=== PATIENT | male | born 1930 | race Caucasian/White ===

== ENCOUNTER 2019-02-18 13:10 | Inpatient (IN) | payer MEDICARE ==
[~2019-02-18] VITALS: Ht 172.7 cm; Wt 76.7 kg
[2019-02-18] MEDS ORDERED: Z GUARD REMEDY PASTE 57 GM TUBE TOP PRN (17:00)
[2019-02-18 17:20] VITALS: BP 105/69
[2019-02-18] MEDS ORDERED: [UNRECOGNIZED DRUG - CODE] NEB (17:38)
[2019-02-18] MEDS ORDERED: ONDA4TAB10 PO (17:38)
[2019-02-18] MEDS ORDERED: PRED20TA PO (17:38)
[2019-02-18] MEDS ORDERED: DABI150C PO (17:38)
[2019-02-18] MEDS ORDERED: DILT240C88 PO (17:38)
[2019-02-18] MEDS ORDERED: VENL75CA56 PO (17:38)
[2019-02-18] MEDS ORDERED: BUPR300T54 PO (17:38)
[2019-02-18] MEDS ORDERED: IPRA0.2S6 NEB (17:38)
[2019-02-18] MEDS ORDERED: GUAI5SYR4 GT (17:38)
[2019-02-18] MEDS ORDERED: ACET-2154 PO (17:38)
[2019-02-18] MEDS ORDERED: ALBU1.25 IH (17:38)
[2019-02-18] MEDS ORDERED: PRED2.5T PO (17:45)
[2019-02-18 20:42] VITALS: BP 121/65
[2019-02-18] MEDS ORDERED: GUAIFENESIN/CODEINE 5 ML LIQUID UDC GT PRN (22:15)
[2019-02-18] MEDS ORDERED: ACETYLCYSTEINE 10% 4ML VIAL MC SCH (23:30)
[2019-02-19] MEDS: IPRATROPIUM BROMIDE 0.5 MG/2.5 ML NEBU NEB SCH ×6 (00:35→22:30)
[2019-02-19] MEDS: ALBUTEROL SULFATE 1.25 MG/3 ML NEBU IH SCH ×6 (00:35→22:30)
[2019-02-19] MEDS ORDERED: BENZONATATE 100 MG CAPSULE PO PRN ×2 (01:15→07:30)
[2019-02-19] MEDS ORDERED: BENZONATATE 100 MG CAPSULE ONE (01:43)
[2019-02-19 06:01] VITALS: BP 114/64
[2019-02-19 07:52] VITALS: BP 107/55
[2019-02-19] MEDS ORDERED: predniSONE 10 MG TABLET PO SCH (09:00)
[2019-02-19] MEDS ORDERED: predniSONE 20 MG TABLET PO SCH (09:00)
[2019-02-19] MEDS: buPROPion XL 150 MG TAB.SR.24H PO SCH (09:00)
[2019-02-19] MEDS ORDERED: Medication Not On Formulary EA (Bupropion Hcl (Bupropion Xl) 300 MG) PO SCH (09:00)
[2019-02-19] MEDS: VENLAFAXINE XR 75 MG CAP.SR.24H PO SCH (09:22)
[2019-02-19] MEDS: predniSONE 20 MG TABLET PO SCH (09:22)
[2019-02-19] MEDS: DILTIAZEM HCL CD 240 MG CAP.SR.24H PO SCH (09:22)
[2019-02-19] MEDS: ACETYLCYSTEINE 10% 4ML VIAL NEB SCH ×2 (15:30→22:30)
[2019-02-19 16:23] VITALS: BP 119/64
[2019-02-19] MEDS: DABIGATRAN ETEXILATE MESYLATE 150 MG CAPSULE PO SCH (17:18)
[2019-02-19] MEDS: MUPIROCIN 2% OINT 22 GM TUBE NS SCH (20:26)
[2019-02-19 20:32] VITALS: BP 105/60
[2019-02-19] MEDS: GUAIFENESIN/CODEINE 5 ML LIQUID UDC PO PRN (22:32)
[2019-02-20] MEDS: ALBUTEROL SULFATE 1.25 MG/3 ML NEBU IH SCH ×6 (02:30→22:33)
[2019-02-20] MEDS: IPRATROPIUM BROMIDE 0.5 MG/2.5 ML NEBU NEB SCH ×6 (02:30→22:33)
[2019-02-20 06:41] VITALS: BP 112/67
[2019-02-20 07:02] LABS: BASOPHILS % (AUTO) 0.2 % (0.0-2.0); EOSINOPHILS % (AUTO) 0.1 % (0.0-7.0); HEMOGLOBIN 8.8 g/dL (12.5-16.3); LYMPHOCYTES # (AUTO) 0.4 K/uL (20.0-40.0); LYMPHOCYTES % (AUTO) 2.6 % (20.5-51.5); MEAN CORPUSCULAR HGB CONC 33 g/dL (32.5-36.3); MEAN CORPUSCULAR VOLUME 85.9 fL (73.0-96.2); MONOCYTES # (AUTO) 1.2 K/uL (2.0-10.0); MONOCYTES % (AUTO) 8.8 % (0.0-11.0); NEUTROPHILS # (AUTO) 12.2 K/uL (1.8-8.9); NEUTROPHILS % (AUTO) 88.3 % (38.5-71.5); PLATELET COUNT (AUTO) 327 K/uL (152-348); RED BLOOD CELL COUNT(AUTO) 3.14 MIL/uL (4.06-5.63); WHITE BLOOD COUNT (AUTO) 13.9 K/uL (3.6-10.2)
[2019-02-20] MEDS: ACETYLCYSTEINE 10% 4ML VIAL NEB SCH ×3 (07:22→22:33)
[2019-02-20 07:43] LABS: IRON, SERUM 17 ug/dL (50-175)
[2019-02-20 07:44] LABS: THYROID STIMULATING HORMONE 1.673 mIU/mL (0.358-3.740)
[2019-02-20 07:46] LABS: ALANINE AMINOTRANSFERASE 40 U/L (16-63); ALKALINE PHOSPHATASE 106 U/L (50-136); ASPARTATE AMINOTRANSFERASE 27 U/L (15-37); BILIRUBIN,TOTAL 0.5 mg/dL (0.2-1.0); CARBON DIOXIDE 29 mmol/L (21-32); CHLORIDE 100 mmol/L (98-107); CHOLESTEROL 129 mg/dL (<200); CREATININE 1.1 mg/dL (0.6-1.3); GLUCOSE 86 mg/dL (74-106); HDL CHOLESTEROL 61 mg/dL (40-60); MAGNESIUM 2.4 mg/dL (1.8-2.4); PHOSPHOROUS 3.2 mg/dL (2.5-4.9); POTASSIUM 3.9 mmol/L (3.5-5.1); TOTAL PROTEIN, SERUM 6.1 g/dL (6.4-8.2); TRIGLYCERIDES 69 MG/DL (30-150); UREA NITROGEN, BLOOD 33 mg/dL (7-18)
[2019-02-20 07:55] VITALS: BP 116/45
[2019-02-20] MEDS ORDERED: LEVOFLOXACIN 500 MG TABLET PO SCH (08:00)
[2019-02-20] MEDS: buPROPion XL 150 MG TAB.SR.24H PO SCH (09:44)
[2019-02-20] MEDS: VENLAFAXINE XR 75 MG CAP.SR.24H PO SCH (09:44)
[2019-02-20] MEDS: predniSONE 20 MG TABLET PO SCH (09:44)
[2019-02-20] MEDS: DABIGATRAN ETEXILATE MESYLATE 150 MG CAPSULE PO SCH ×2 (09:45→18:18)
[2019-02-20] MEDS: DILTIAZEM HCL CD 240 MG CAP.SR.24H PO SCH (09:46)
[2019-02-20] MEDS: MUPIROCIN 2% OINT 22 GM TUBE NS SCH ×2 (09:54→21:18)
[2019-02-20] MEDS: GUAIFENESIN/CODEINE 5 ML LIQUID UDC PO PRN ×2 (10:20→21:42)
[2019-02-20 15:25] VITALS: BP 99/44
[2019-02-20] MEDS ORDERED: FUROSEMIDE 20 MG TABLET PO SCH (18:30)
[2019-02-20 21:17] VITALS: BP 112/56
[2019-02-20] MEDS: CULTURELLE CAPSULE PO SCH (21:18)
[2019-02-20] MEDS: FUROSEMIDE 20 MG/2 ML VIAL IV SCH (21:46)
[2019-02-20] MEDS: PIPERACILLIN/TAZOBACTAM/D5W 3.375 G in PREMIXED 1 EACH IV SCH (23:09)
[2019-02-21] MEDS: ALBUTEROL SULFATE 1.25 MG/3 ML NEBU IH SCH ×5 (02:35→20:09)
[2019-02-21] MEDS: IPRATROPIUM BROMIDE 0.5 MG/2.5 ML NEBU NEB SCH ×5 (02:35→20:09)
[2019-02-21] MEDS: ACETAMINOPHEN 325 MG TABLET PO PRN (04:16)
[2019-02-21 05:53] VITALS: BP 118/61
[2019-02-21] MEDS: PIPERACILLIN/TAZOBACTAM/D5W 3.375 G in PREMIXED 1 EACH IV SCH ×3 (06:18→21:07)
[2019-02-21 07:23] LABS: HEMATOCRIT 26.4 % (36.7-47.1); HEMOGLOBIN 8.6 g/dL (12.5-16.3); LYMPHOCYTES # (AUTO) 0.3 K/uL (20.0-40.0); LYMPHOCYTES % (AUTO) 1.7 % (20.5-51.5); MEAN CORPUSCULAR HEMOGLOBIN 27.9 uug (23.8-33.4); MEAN CORPUSCULAR HGB CONC 33 g/dL (32.5-36.3); MEAN CORPUSCULAR VOLUME 85.9 fL (73.0-96.2); MONOCYTES # (AUTO) 1.2 K/uL (2.0-10.0); NEUTROPHILS # (AUTO) 15.3 K/uL (1.8-8.9); NEUTROPHILS % (AUTO) 91.3 % (38.5-71.5); PLATELET COUNT (AUTO) 269 K/uL (152-348); RED BLOOD CELL COUNT(AUTO) 3.07 MIL/uL (4.06-5.63); WHITE BLOOD COUNT (AUTO) 16.8 K/uL (3.6-10.2)
[2019-02-21] MEDS: ACETYLCYSTEINE 10% 4ML VIAL NEB SCH ×2 (07:25→14:40)
[2019-02-21 07:52] LABS: ALANINE AMINOTRANSFERASE 37 U/L (16-63); ALKALINE PHOSPHATASE 107 U/L (50-136); ASPARTATE AMINOTRANSFERASE 19 U/L (15-37); BILIRUBIN,TOTAL 0.8 mg/dL (0.2-1.0); CARBON DIOXIDE 32 mmol/L (21-32); CHLORIDE 100 mmol/L (98-107); CREATININE 1.2 mg/dL (0.6-1.3); GLUCOSE 102 mg/dL (74-106); MAGNESIUM 2.3 mg/dL (1.8-2.4); PHOSPHOROUS 3.1 mg/dL (2.5-4.9); POTASSIUM 3.7 mmol/L (3.5-5.1); TOTAL PROTEIN, SERUM 5.8 g/dL (6.4-8.2); UREA NITROGEN, BLOOD 29 mg/dL (7-18)
[2019-02-21 08:00] VITALS: BP 106/55
[2019-02-21] MEDS: FLUTICASONE/VILANTEROL 1 EACH BLST.W.DEV INH SCH (08:21)
[2019-02-21] MEDS: CULTURELLE CAPSULE PO SCH ×2 (08:22→21:07)
[2019-02-21] MEDS: MUPIROCIN 2% OINT 22 GM TUBE NS SCH ×2 (08:23→21:09)
[2019-02-21] MEDS: DILTIAZEM HCL CD 240 MG CAP.SR.24H PO SCH (08:23)
[2019-02-21] MEDS: FUROSEMIDE 20 MG/2 ML VIAL IV SCH ×2 (08:23→21:07)
[2019-02-21] MEDS: buPROPion XL 150 MG TAB.SR.24H PO SCH (08:24)
[2019-02-21] MEDS: VENLAFAXINE XR 75 MG CAP.SR.24H PO SCH (08:24)
[2019-02-21] MEDS: predniSONE 20 MG TABLET PO SCH (08:25)
[2019-02-21] MEDS: PROTEIN SUPPLEMENT (PROSTAT) 30 ML LIQUID PO SCH ×3 (08:26→16:40)
[2019-02-21] MEDS: DABIGATRAN ETEXILATE MESYLATE 150 MG CAPSULE PO SCH ×2 (09:43→16:37)
[2019-02-21] MEDS: SOD FERRIC GLUC COMPLX/SUCROSE 125 MG in IV NORMAL SALINE 100 ML IV SCH (13:56)
[2019-02-21] MEDS ORDERED: MIRALAX 17 GM POWD.PACK PO ONE (14:30)
[2019-02-21 16:00] VITALS: BP 99/62
[2019-02-21 19:10] LABS: *BILIRUBIN,URIN NEGATIVE (NEGATIVE); *BLOOD, URINE NEGATIVE (NEGATIVE); *CLARITY,URINE CLEAR (CLEAR); *COLOR,URINE YELLOW (YELLOW); *KETONES,URINE NEGATIVE (NEGATIVE); *UROBILINOGEN,URINE 0.2 E.U./dl (NORMAL); LEUKOCYTE ESTERASE ,URINE NEGATIVE (NEGATIVE); NITRITE, URINE NEGATIVE (NEGATIVE); UGLUCOSE NEGATIVE (NEGATIVE)
[2019-02-21 19:56] VITALS: BP 104/51
[2019-02-21] MEDS ORDERED: MUPIROCIN 2% OINT 22 GM TUBE NS SCH (21:00)
[2019-02-21] MEDS ORDERED: DOCUSATE SODIUM 100 MG CAPSULE PO SCH (21:00)
[2019-02-21] MEDS: DOXYCYCLINE HYCLATE 100 MG TABLET PO SCH (21:07)
[2019-02-22] MEDS: ACETYLCYSTEINE 10% 4ML VIAL NEB SCH ×4 (00:02→22:56)
[2019-02-22] MEDS: ALBUTEROL SULFATE 1.25 MG/3 ML NEBU IH SCH ×7 (00:02→22:56)
[2019-02-22] MEDS: IPRATROPIUM BROMIDE 0.5 MG/2.5 ML NEBU NEB SCH ×7 (00:02→22:56)
[2019-02-22] MEDS: PIPERACILLIN/TAZOBACTAM/D5W 3.375 G in PREMIXED 1 EACH IV SCH ×3 (05:38→21:16)
[2019-02-22 07:11] LABS: BASOPHILS % (AUTO) 0.3 % (0.0-2.0); EOSINOPHILS # (AUTO) 0.1 K/uL (0.0-0.7); EOSINOPHILS % (AUTO) 0.9 % (0.0-7.0); HEMATOCRIT 27.8 % (36.7-47.1); LYMPHOCYTES # (AUTO) 0.4 K/uL (20.0-40.0); LYMPHOCYTES % (AUTO) 3.2 % (20.5-51.5); MEAN CORPUSCULAR HEMOGLOBIN 27.8 uug (23.8-33.4); MEAN CORPUSCULAR HGB CONC 33 g/dL (32.5-36.3); MEAN CORPUSCULAR VOLUME 85.6 fL (73.0-96.2); MONOCYTES # (AUTO) 1.1 K/uL (2.0-10.0); MONOCYTES % (AUTO) 7.7 % (0.0-11.0); NEUTROPHILS # (AUTO) 12.2 K/uL (1.8-8.9); NEUTROPHILS % (AUTO) 87.9 % (38.5-71.5); PLATELET COUNT (AUTO) 284 K/uL (152-348); RED BLOOD CELL COUNT(AUTO) 3.24 MIL/uL (4.06-5.63); WHITE BLOOD COUNT (AUTO) 13.9 K/uL (3.6-10.2)
[2019-02-22 07:19] LABS: ALANINE AMINOTRANSFERASE 31 U/L (16-63); ALKALINE PHOSPHATASE 105 U/L (50-136); ASPARTATE AMINOTRANSFERASE 18 U/L (15-37); BILIRUBIN,TOTAL 0.6 mg/dL (0.2-1.0); CARBON DIOXIDE 31 mmol/L (21-32); CHLORIDE 99 mmol/L (98-107); CREATININE 1.1 mg/dL (0.6-1.3); GLUCOSE 82 mg/dL (74-106); MAGNESIUM 2.2 mg/dL (1.8-2.4); PHOSPHOROUS 2.9 mg/dL (2.5-4.9); TOTAL PROTEIN, SERUM 5.9 g/dL (6.4-8.2); UREA NITROGEN, BLOOD 29 mg/dL (7-18)
[2019-02-22] MEDS: PROTEIN SUPPLEMENT (PROSTAT) 30 ML LIQUID PO SCH ×3 (08:00→17:09)
[2019-02-22 09:08] VITALS: BP 138/47
[2019-02-22] MEDS ORDERED: POTASSIUM CHLORIDE 20 MEQ TAB.PRT.SR PO ONE ×2 (09:45→10:30)
[2019-02-22] MEDS: CULTURELLE CAPSULE PO SCH ×2 (09:49→20:43)
[2019-02-22] MEDS: predniSONE 20 MG TABLET PO SCH (09:49)
[2019-02-22] MEDS: VENLAFAXINE XR 75 MG CAP.SR.24H PO SCH (09:51)
[2019-02-22] MEDS: DILTIAZEM HCL CD 240 MG CAP.SR.24H PO SCH (09:51)
[2019-02-22] MEDS: buPROPion XL 150 MG TAB.SR.24H PO SCH (09:52)
[2019-02-22] MEDS: DOXYCYCLINE HYCLATE 100 MG TABLET PO SCH ×2 (09:55→20:44)
[2019-02-22] MEDS: DABIGATRAN ETEXILATE MESYLATE 150 MG CAPSULE PO SCH (09:57)
[2019-02-22] MEDS: FLUTICASONE/VILANTEROL 1 EACH BLST.W.DEV INH SCH (10:12)
[2019-02-22] MEDS: MUPIROCIN 2% OINT 22 GM TUBE NS SCH ×2 (10:13→20:45)
[2019-02-22] MEDS: FUROSEMIDE 20 MG/2 ML VIAL IV SCH ×2 (10:36→20:40)
[2019-02-22] MEDS: SOD FERRIC GLUC COMPLX/SUCROSE 125 MG in IV NORMAL SALINE 100 ML IV SCH (13:50)
[2019-02-22] MEDS: MIRALAX 17 GM POWD.PACK PO PRN (15:17)
[2019-02-22] MEDS: [UNRECOGNIZED DRUG - OTHER] PO SCH (17:06)
[2019-02-22] MEDS ORDERED: MIRALAX 17 GM POWD.PACK PO PRN (17:45)
[2019-02-22 18:47] LABS: PRE ALBUMIN 12.7 MG/DL (18.0-35.7)
[2019-02-22 18:49] VITALS: BP 99/48
[2019-02-22] MEDS: DOCUSATE SODIUM 100 MG CAPSULE PO SCH (20:47)
[2019-02-22] MEDS: GUAIFENESIN/CODEINE 5 ML LIQUID UDC PO PRN (20:50)
[2019-02-22] MEDS ORDERED: DOCUSATE SODIUM 100 MG CAPSULE PO SCH (21:00)
[2019-02-22 22:00] VITALS: BP 115/55
[2019-02-23] MEDS: ALBUTEROL SULFATE 1.25 MG/3 ML NEBU IH SCH ×6 (03:05→23:27)
[2019-02-23] MEDS: IPRATROPIUM BROMIDE 0.5 MG/2.5 ML NEBU NEB SCH ×6 (03:06→23:27)
[2019-02-23 04:30] VITALS: BP 95/37
[2019-02-23] MEDS: PIPERACILLIN/TAZOBACTAM/D5W 3.375 G in PREMIXED 1 EACH IV SCH ×3 (05:12→21:23)
[2019-02-23] MEDS: ACETYLCYSTEINE 10% 4ML VIAL NEB SCH ×3 (07:11→23:27)
[2019-02-23] MEDS ORDERED: SWABABLE VALVE TRANSFER SET EA MC ONE (07:31)
[2019-02-23] MEDS ORDERED: IV NORMAL SALINE 250 ML IV ONE (07:31)
[2019-02-23] MEDS ORDERED: IOHEXOL 300MG/ML 100 ML INFUS..BTL ONE (07:31)
[2019-02-23 08:00] VITALS: BP 113/55
[2019-02-23] MEDS: DOXYCYCLINE HYCLATE 100 MG TABLET PO SCH ×2 (09:00→21:18)
[2019-02-23] MEDS: [UNRECOGNIZED DRUG - OTHER] PO SCH ×2 (09:01→16:28)
[2019-02-23] MEDS: DOCUSATE SODIUM 100 MG CAPSULE PO SCH ×2 (09:06→21:18)
[2019-02-23] MEDS: buPROPion XL 150 MG TAB.SR.24H PO SCH (09:06)
[2019-02-23] MEDS: VENLAFAXINE XR 75 MG CAP.SR.24H PO SCH (09:06)
[2019-02-23] MEDS: predniSONE 10 MG TABLET PO SCH (09:06)
[2019-02-23] MEDS: CULTURELLE CAPSULE PO SCH ×2 (09:06→21:18)
[2019-02-23] MEDS: DILTIAZEM HCL CD 240 MG CAP.SR.24H PO SCH (09:08)
[2019-02-23] MEDS: MUPIROCIN 2% OINT 22 GM TUBE NS SCH ×2 (09:08→21:39)
[2019-02-23] MEDS: FUROSEMIDE 20 MG/2 ML VIAL IV SCH ×2 (09:08→21:19)
[2019-02-23] MEDS: FLUTICASONE/VILANTEROL 1 EACH BLST.W.DEV INH SCH (09:09)
[2019-02-23] MEDS: PROTEIN SUPPLEMENT (PROSTAT) 30 ML LIQUID PO SCH ×3 (09:09→16:33)
[2019-02-23] MEDS: ACETAMINOPHEN 325 MG TABLET PO PRN (11:06)
[2019-02-23] MEDS: SOD FERRIC GLUC COMPLX/SUCROSE 125 MG in IV NORMAL SALINE 100 ML IV SCH (13:59)
[2019-02-23] MEDS ORDERED: POTASSIUM CHLORIDE 20 MEQ TAB.PRT.SR PO ONE (15:15)
[2019-02-23] MEDS ORDERED: MAGNESIUM CITRATE 296 ML BOTTLE PO ONE (15:15)
[2019-02-23 16:16] VITALS: BP 101/53
[2019-02-23 21:09] VITALS: BP 112/50
[2019-02-24] MEDS: ALBUTEROL SULFATE 1.25 MG/3 ML NEBU IH SCH ×6 (03:28→23:00)
[2019-02-24] MEDS: IPRATROPIUM BROMIDE 0.5 MG/2.5 ML NEBU NEB SCH ×6 (03:28→23:01)
[2019-02-24 04:45] VITALS: BP 104/66
[2019-02-24] MEDS: PIPERACILLIN/TAZOBACTAM/D5W 3.375 G in PREMIXED 1 EACH IV SCH ×3 (05:36→22:05)
[2019-02-24 07:02] LABS: BASOPHILS % (AUTO) 0.8 % (0.0-2.0); EOSINOPHILS % (AUTO) 0.6 % (0.0-7.0); HEMATOCRIT 27.6 % (36.7-47.1); LYMPHOCYTES # (AUTO) 0.6 K/uL (20.0-40.0); LYMPHOCYTES % (AUTO) 5.3 % (20.5-51.5); MEAN CORPUSCULAR HGB CONC 33 g/dL (32.5-36.3); MEAN CORPUSCULAR VOLUME 85.4 fL (73.0-96.2); NEUTROPHILS # (AUTO) 9.6 K/uL (1.8-8.9); NEUTROPHILS % (AUTO) 82.3 % (38.5-71.5); PLATELET COUNT (AUTO) 345 K/uL (152-348); RED BLOOD CELL COUNT(AUTO) 3.23 MIL/uL (4.06-5.63); WHITE BLOOD COUNT (AUTO) 11.7 K/uL (3.6-10.2)
[2019-02-24 07:03] LABS: BASOPHILS # (AUTO) 0.1 K/uL (0.0-8.0); EOSINOPHILS # (AUTO) 0.1 K/uL (0.0-0.7); MONOCYTES # (AUTO) 1.3 K/uL (2.0-10.0)
[2019-02-24 07:19] LABS: ALANINE AMINOTRANSFERASE 28 U/L (16-63); ALKALINE PHOSPHATASE 95 U/L (50-136); ASPARTATE AMINOTRANSFERASE 18 U/L (15-37); BILIRUBIN,TOTAL 0.7 mg/dL (0.2-1.0); CARBON DIOXIDE 31 mmol/L (21-32); CHLORIDE 103 mmol/L (98-107); CREATININE 1.2 mg/dL (0.6-1.3); GLUCOSE 76 mg/dL (74-106); MAGNESIUM 2.5 mg/dL (1.8-2.4); PHOSPHOROUS 3.1 mg/dL (2.5-4.9); POTASSIUM 3.1 mmol/L (3.5-5.1); TOTAL PROTEIN, SERUM 5.7 g/dL (6.4-8.2); UREA NITROGEN, BLOOD 32 mg/dL (7-18)
[2019-02-24 08:00] VITALS: BP 108/51
[2019-02-24 08:09] LABS: LYMPHOCYTES % (MANUAL) 8 % (20-40); MONOCYTES % (MANUAL) 1 % (2-10); NEUTROPHILS % (MANUAL) 91 % (42-75)
[2019-02-24] MEDS: ACETYLCYSTEINE 10% 4ML VIAL NEB SCH ×3 (08:09→23:01)
[2019-02-24 08:20] LABS: ABG BASE EXCESS 8.7 mmol/L; ABG HCO3 31.2 mmol/L; ABG PCO2 34.8 mmHg (35.0-45.0); ABG PO2 57.8 mmHg (75.0-100.0); ABG SITE RIGHT RADIAL; ABG TOTAL HEMOGLOBIN 10.7 G/dL (13.5-18.0); COHb 1.6 % (0.5-1.5); MetHb 0.1 % (0.0-1.5); O2Hb 89.6 % (94.0-97.0); VENT MODE Nasal Cannula
[2019-02-24] MEDS: buPROPion XL 150 MG TAB.SR.24H PO SCH ×2 (09:00→09:01)
[2019-02-24] MEDS: DILTIAZEM HCL CD 240 MG CAP.SR.24H PO SCH ×2 (09:00→09:03)
[2019-02-24] MEDS: predniSONE 10 MG TABLET PO SCH ×2 (09:00→09:01)
[2019-02-24] MEDS: FLUTICASONE/VILANTEROL 1 EACH BLST.W.DEV INH SCH (09:00)
[2019-02-24] MEDS: MUPIROCIN 2% OINT 22 GM TUBE NS SCH ×2 (09:00→22:00)
[2019-02-24] MEDS: DOXYCYCLINE HYCLATE 100 MG TABLET PO SCH ×3 (09:00→21:51)
[2019-02-24] MEDS: [UNRECOGNIZED DRUG - OTHER] PO SCH ×3 (09:00→17:37)
[2019-02-24] MEDS: CULTURELLE CAPSULE PO SCH ×3 (09:00→21:51)
[2019-02-24] MEDS: VENLAFAXINE XR 75 MG CAP.SR.24H PO SCH ×2 (09:00→09:01)
[2019-02-24] MEDS: DOCUSATE SODIUM 100 MG CAPSULE PO SCH ×2 (09:01→21:51)
[2019-02-24] MEDS: ACETAMINOPHEN 325 MG TABLET PO PRN (09:19)
[2019-02-24] MEDS: FUROSEMIDE 20 MG/2 ML VIAL IV SCH ×2 (09:26→21:51)
[2019-02-24] MEDS: PROTEIN SUPPLEMENT (PROSTAT) 30 ML LIQUID PO SCH ×3 (09:26→17:07)
[2019-02-24] MEDS ORDERED: POTASSIUM CHLORIDE 20 MEQ TAB.PRT.SR PO ONE (09:45)
[2019-02-24] MEDS ORDERED: BISACODYL 10 MG SUPP.RECT RC ONE (09:45)
[2019-02-24] MEDS ORDERED: PHENAZOPYRIDINE HCL 100 MG TABLET PO SCH (11:00)
[2019-02-24] MEDS: LIDOCAINE 5% PATCH TD SCH (12:10)
[2019-02-24] MEDS: MIRALAX 17 GM POWD.PACK PO PRN (12:24)
[2019-02-24 13:05] LABS: *BILIRUBIN,URIN NEGATIVE (NEGATIVE); *CLARITY,URINE CLEAR (CLEAR); *COLOR,URINE YELLOW (YELLOW); *KETONES,URINE NEGATIVE (NEGATIVE); LEUKOCYTE ESTERASE ,URINE NEGATIVE (NEGATIVE); NITRITE, URINE NEGATIVE (NEGATIVE); UGLUCOSE NEGATIVE (NEGATIVE)
[2019-02-24 13:09] LABS: *BLOOD, URINE NEGATIVE (NEGATIVE)
[2019-02-24 13:12] LABS: BACTERIA,URINE FEW /HPF (NONE SEEN); RBC,URINE NONE SEEN /HPF (0-3); SQUAMOUS EPITHELIAL CELL,UR FEW /HPF (NONE SEEN); WBC,URINE 0-3 /HPF (0-3)
[2019-02-24] MEDS: TRAMADOL HCL 50 MG TABLET PO PRN (13:44)
[2019-02-24 16:00] VITALS: BP 129/60
[2019-02-24] MEDS ORDERED: MINERAL OIL FLEET ENEMA 133 ML BOTTLE RC ONE (19:30)
[2019-02-24 22:25] VITALS: BP 113/51
[2019-02-24 22:26] VITALS: BP 135/67
[2019-02-25] MEDS: ACETAMINOPHEN 325 MG TABLET PO PRN (02:54)
[2019-02-25] MEDS: ALBUTEROL SULFATE 1.25 MG/3 ML NEBU IH SCH ×7 (03:34→23:13)
[2019-02-25] MEDS: IPRATROPIUM BROMIDE 0.5 MG/2.5 ML NEBU NEB SCH ×7 (03:34→23:13)
[2019-02-25 05:22] VITALS: BP 107/55
[2019-02-25] MEDS: SORBITOL 70% SOLUTION 30 ML UDC PO SCH ×5 (06:00→17:31)
[2019-02-25] MEDS: PIPERACILLIN/TAZOBACTAM/D5W 3.375 G in PREMIXED 1 EACH IV SCH ×3 (06:22→21:34)
[2019-02-25 06:45] LABS: BASOPHILS # (AUTO) 0.1 K/uL (0.0-8.0); BASOPHILS % (AUTO) 0.4 % (0.0-2.0); EOSINOPHILS # (AUTO) 0.1 K/uL (0.0-0.7); EOSINOPHILS % (AUTO) 0.5 % (0.0-7.0); HEMOGLOBIN 9.9 g/dL (12.5-16.3); LYMPHOCYTES # (AUTO) 0.7 K/uL (20.0-40.0); LYMPHOCYTES % (AUTO) 3.9 % (20.5-51.5); MEAN CORPUSCULAR HEMOGLOBIN 27.3 uug (23.8-33.4); MEAN CORPUSCULAR HGB CONC 32 g/dL (32.5-36.3); MEAN CORPUSCULAR VOLUME 85.3 fL (73.0-96.2); MONOCYTES # (AUTO) 1.4 K/uL (2.0-10.0); NEUTROPHILS % (AUTO) 87.2 % (38.5-71.5); PLATELET COUNT (AUTO) 460 K/uL (152-348); RED BLOOD CELL COUNT(AUTO) 3.63 MIL/uL (4.06-5.63); WHITE BLOOD COUNT (AUTO) 17.2 K/uL (3.6-10.2)
[2019-02-25 06:54] LABS: CARBON DIOXIDE 27 mmol/L (21-32); CHLORIDE 101 mmol/L (98-107); CREATININE 1.5 mg/dL (0.6-1.3); GLUCOSE 102 mg/dL (74-106); POTASSIUM 3.5 mmol/L (3.5-5.1); UREA NITROGEN, BLOOD 38 mg/dL (7-18)
[2019-02-25] MEDS: ACETYLCYSTEINE 10% 4ML VIAL NEB SCH ×4 (07:35→23:13)
[2019-02-25 08:00] VITALS: BP 115/64
[2019-02-25] MEDS: PROTEIN SUPPLEMENT (PROSTAT) 30 ML LIQUID PO SCH ×4 (08:00→17:00)
[2019-02-25] MEDS: DOXYCYCLINE HYCLATE 100 MG TABLET PO SCH ×3 (08:41→21:32)
[2019-02-25] MEDS: [UNRECOGNIZED DRUG - OTHER] PO SCH ×3 (08:43→17:00)
[2019-02-25] MEDS: DILTIAZEM HCL CD 240 MG CAP.SR.24H PO SCH ×2 (08:44→09:00)
[2019-02-25] MEDS: buPROPion XL 150 MG TAB.SR.24H PO SCH ×2 (08:45→09:00)
[2019-02-25] MEDS: DOCUSATE SODIUM 100 MG CAPSULE PO SCH ×3 (08:45→21:33)
[2019-02-25] MEDS: CULTURELLE CAPSULE PO SCH ×3 (08:45→21:32)
[2019-02-25] MEDS: VENLAFAXINE XR 75 MG CAP.SR.24H PO SCH ×2 (08:45→09:00)
[2019-02-25] MEDS: FLUTICASONE/VILANTEROL 1 EACH BLST.W.DEV INH SCH (08:46)
[2019-02-25] MEDS: MUPIROCIN 2% OINT 22 GM TUBE NS SCH ×3 (08:46→21:33)
[2019-02-25] MEDS: LIDOCAINE 5% PATCH TD SCH ×2 (08:46→09:00)
[2019-02-25 17:29] VITALS: BP 117/72
[2019-02-25] MEDS ORDERED: BISACODYL 10 MG SUPP.RECT RC ONE (17:45)
[2019-02-25 21:11] VITALS: BP 117/61
[2019-02-26 03:00] VITALS: BP 103/53
[2019-02-26] MEDS ORDERED: ALPRAZOLAM 0.25 MG TABLET PO ONE (03:15)
[2019-02-26] MEDS: ALBUTEROL SULFATE 1.25 MG/3 ML NEBU IH SCH ×6 (03:53→22:30)
[2019-02-26] MEDS: IPRATROPIUM BROMIDE 0.5 MG/2.5 ML NEBU NEB SCH ×6 (03:53→22:30)
[2019-02-26] MEDS: PIPERACILLIN/TAZOBACTAM/D5W 3.375 G in PREMIXED 1 EACH IV SCH ×2 (05:03→14:04)
[2019-02-26 07:19] LABS: BASOPHILS % (AUTO) 0.3 % (0.0-2.0); EOSINOPHILS % (AUTO) 0.2 % (0.0-7.0); HEMATOCRIT 29.3 % (36.7-47.1); HEMOGLOBIN 9.3 g/dL (12.5-16.3); LYMPHOCYTES # (AUTO) 0.6 K/uL (20.0-40.0); LYMPHOCYTES % (AUTO) 3.6 % (20.5-51.5); MEAN CORPUSCULAR HEMOGLOBIN 27.4 uug (23.8-33.4); MEAN CORPUSCULAR HGB CONC 32 g/dL (32.5-36.3); MEAN CORPUSCULAR VOLUME 86.2 fL (73.0-96.2); MONOCYTES # (AUTO) 1.1 K/uL (2.0-10.0); MONOCYTES % (AUTO) 6.6 % (0.0-11.0); NEUTROPHILS # (AUTO) 14.4 K/uL (1.8-8.9); NEUTROPHILS % (AUTO) 89.3 % (38.5-71.5); PLATELET COUNT (AUTO) 341 K/uL (152-348); RED BLOOD CELL COUNT(AUTO) 3.41 MIL/uL (4.06-5.63); WHITE BLOOD COUNT (AUTO) 16.1 K/uL (3.6-10.2)
[2019-02-26] MEDS: ACETYLCYSTEINE 10% 4ML VIAL NEB SCH ×3 (07:27→22:30)
[2019-02-26 07:47] VITALS: BP 103/57
[2019-02-26] MEDS: PROTEIN SUPPLEMENT (PROSTAT) 30 ML LIQUID PO SCH ×3 (08:00→17:00)
[2019-02-26 08:45] LABS: CARBON DIOXIDE 28 mmol/L (21-32); CHLORIDE 102 mmol/L (98-107); CREATININE 1.3 mg/dL (0.6-1.3); GLUCOSE 82 mg/dL (74-106); POTASSIUM 3.1 mmol/L (3.5-5.1); UREA NITROGEN, BLOOD 36 mg/dL (7-18)
[2019-02-26] MEDS: DILTIAZEM HCL CD 240 MG CAP.SR.24H PO SCH (09:00)
[2019-02-26] MEDS: LIDOCAINE 5% PATCH TD SCH (09:00)
[2019-02-26] MEDS: DOXYCYCLINE HYCLATE 100 MG TABLET PO SCH ×2 (09:07→21:37)
[2019-02-26] MEDS: BUMETANIDE 1 MG TABLET PO SCH (09:07)
[2019-02-26] MEDS: DOCUSATE SODIUM 100 MG CAPSULE PO SCH ×2 (09:07→21:37)
[2019-02-26] MEDS: VENLAFAXINE XR 75 MG CAP.SR.24H PO SCH (09:07)
[2019-02-26] MEDS: CULTURELLE CAPSULE PO SCH ×2 (09:07→21:37)
[2019-02-26] MEDS: FLUTICASONE/VILANTEROL 1 EACH BLST.W.DEV INH SCH (09:07)
[2019-02-26] MEDS: buPROPion XL 150 MG TAB.SR.24H PO SCH (09:07)
[2019-02-26] MEDS: [UNRECOGNIZED DRUG - OTHER] PO SCH ×2 (09:10→17:16)
[2019-02-26] MEDS ORDERED: POTASSIUM CHLORIDE 20 MEQ TAB.PRT.SR PO ONE (09:15)
[2019-02-26] MEDS ORDERED: POTASSIUM CHLORIDE 20 MEQ POWDER PACKET PO ONE (10:15)
[2019-02-26] MEDS: TRAMADOL HCL 50 MG TABLET PO PRN (10:49)
[2019-02-26] MEDS ORDERED: BARIUM SULFATE 340 GM ONE (13:58)
[2019-02-26] MEDS ORDERED: LORAZEPAM 0.5 MG TABLET PO PRN (14:45)
[2019-02-26 16:25] VITALS: BP 96/57
[2019-02-26] MEDS: ACETAMINOPHEN 325 MG TABLET PO PRN (17:16)
[2019-02-26 19:56] VITALS: BP 106/61
[2019-02-26] MEDS: MIRTAZAPINE 15 MG TABLET PO SCH (21:38)
[2019-02-27] MEDS: IPRATROPIUM BROMIDE 0.5 MG/2.5 ML NEBU NEB SCH ×6 (02:30→23:56)
[2019-02-27] MEDS: ALBUTEROL SULFATE 1.25 MG/3 ML NEBU IH SCH ×6 (02:30→23:56)
[2019-02-27 05:45] VITALS: BP 101/52
[2019-02-27 07:24] LABS: BASOPHILS % (AUTO) 0.2 % (0.0-2.0); EOSINOPHILS # (AUTO) 0.1 K/uL (0.0-0.7); EOSINOPHILS % (AUTO) 0.6 % (0.0-7.0); HEMATOCRIT 28.6 % (36.7-47.1); HEMOGLOBIN 9.1 g/dL (12.5-16.3); LYMPHOCYTES # (AUTO) 0.9 K/uL (20.0-40.0); LYMPHOCYTES % (AUTO) 6.4 % (20.5-51.5); MEAN CORPUSCULAR HEMOGLOBIN 27.7 uug (23.8-33.4); MEAN CORPUSCULAR HGB CONC 32 g/dL (32.5-36.3); MEAN CORPUSCULAR VOLUME 86.8 fL (73.0-96.2); MONOCYTES % (AUTO) 7.3 % (0.0-11.0); NEUTROPHILS # (AUTO) 12.2 K/uL (1.8-8.9); NEUTROPHILS % (AUTO) 85.5 % (38.5-71.5); PLATELET COUNT (AUTO) 359 K/uL (152-348); RED BLOOD CELL COUNT(AUTO) 3.29 MIL/uL (4.06-5.63); WHITE BLOOD COUNT (AUTO) 14.3 K/uL (3.6-10.2)
[2019-02-27 07:31] LABS: CARBON DIOXIDE 28 mmol/L (21-32); CHLORIDE 101 mmol/L (98-107); CREATININE 1.5 mg/dL (0.6-1.3); GLUCOSE 97 mg/dL (74-106); POTASSIUM 3.2 mmol/L (3.5-5.1); UREA NITROGEN, BLOOD 39 mg/dL (7-18)
[2019-02-27 07:51] LABS: LYMPHOCYTES % (MANUAL) 10 % (20-40); MONOCYTES % (MANUAL) 6 % (2-10); NEUTROPHILS % (MANUAL) 84 % (42-75)
[2019-02-27] MEDS: PROTEIN SUPPLEMENT (PROSTAT) 30 ML LIQUID PO SCH ×3 (08:00→17:36)
[2019-02-27] MEDS: ACETYLCYSTEINE 10% 4ML VIAL NEB SCH ×3 (08:13→23:56)
[2019-02-27 09:00] VITALS: BP 111/64
[2019-02-27] MEDS: LIDOCAINE 5% PATCH TD SCH (09:00)
[2019-02-27] MEDS: DOCUSATE SODIUM 100 MG CAPSULE PO SCH ×2 (09:00→20:26)
[2019-02-27] MEDS: [UNRECOGNIZED DRUG - OTHER] PO SCH ×2 (09:25→17:36)
[2019-02-27] MEDS: FLUTICASONE/VILANTEROL 1 EACH BLST.W.DEV INH SCH (09:26)
[2019-02-27] MEDS: FLUOXETINE HCL 20 MG CAPSULE PO SCH (09:26)
[2019-02-27] MEDS: BUMETANIDE 1 MG TABLET PO SCH (09:26)
[2019-02-27] MEDS: DOXYCYCLINE HYCLATE 100 MG TABLET PO SCH ×2 (09:26→20:26)
[2019-02-27] MEDS: CULTURELLE CAPSULE PO SCH ×2 (09:27→20:26)
[2019-02-27] MEDS: DILTIAZEM HCL CD 240 MG CAP.SR.24H PO SCH (09:35)
[2019-02-27] MEDS ORDERED: POTASSIUM CHLORIDE 20 MEQ POWDER PACKET PO ONE (13:15)
[2019-02-27] MEDS ORDERED: POTASSIUM CHLORIDE 10 MEQ TAB.PRT.SR PO ONE (13:30)
[2019-02-27] MEDS ORDERED: POTASSIUM CHLORIDE 20 MEQ TAB.PRT.SR PO ONE (13:30)
[2019-02-27 17:16] VITALS: BP 110/50
[2019-02-27 20:16] VITALS: BP 102/63
[2019-02-27] MEDS: MIRTAZAPINE 15 MG TABLET PO SCH (20:26)
[2019-02-28] MEDS: ACETAMINOPHEN 325 MG TABLET PO PRN ×3 (02:59→23:44)
[2019-02-28] MEDS: IPRATROPIUM BROMIDE 0.5 MG/2.5 ML NEBU NEB SCH ×6 (04:20→23:42)
[2019-02-28] MEDS: ALBUTEROL SULFATE 1.25 MG/3 ML NEBU IH SCH ×6 (04:20→23:43)
[2019-02-28 04:24] VITALS: BP 83/48
[2019-02-28 07:30] VITALS: BP 111/54
[2019-02-28 07:40] VITALS: BP 11/54
[2019-02-28] MEDS: ACETYLCYSTEINE 10% 4ML VIAL NEB SCH ×3 (08:16→23:30)
[2019-02-28] MEDS: DILTIAZEM HCL CD 240 MG CAP.SR.24H PO SCH (09:00)
[2019-02-28] MEDS: LIDOCAINE 5% PATCH TD SCH (09:13)
[2019-02-28] MEDS: PROTEIN SUPPLEMENT (PROSTAT) 30 ML LIQUID PO SCH ×3 (09:14→17:23)
[2019-02-28] MEDS: DOXYCYCLINE HYCLATE 100 MG TABLET PO SCH ×2 (09:15→20:33)
[2019-02-28] MEDS: FLUTICASONE/VILANTEROL 1 EACH BLST.W.DEV INH SCH (09:15)
[2019-02-28] MEDS: DOCUSATE SODIUM 100 MG CAPSULE PO SCH ×2 (09:15→20:32)
[2019-02-28] MEDS: BUMETANIDE 1 MG TABLET PO SCH (09:15)
[2019-02-28] MEDS: FLUOXETINE HCL 20 MG CAPSULE PO SCH (09:23)
[2019-02-28] MEDS: [UNRECOGNIZED DRUG - OTHER] PO SCH ×2 (09:23→17:22)
[2019-02-28] MEDS: CULTURELLE CAPSULE PO SCH ×2 (09:24→20:33)
[2019-02-28] MEDS: ONDANSETRON HCL 4 MG TABLET PO PRN (10:45)
[2019-02-28 15:39] LABS: *BILIRUBIN,URIN NEGATIVE (NEGATIVE); *BLOOD, URINE NEGATIVE (NEGATIVE); *CLARITY,URINE CLEAR (CLEAR); *COLOR,URINE YELLOW (YELLOW); *KETONES,URINE NEGATIVE (NEGATIVE); *UROBILINOGEN,URINE 0.2 E.U./dl (NORMAL); LEUKOCYTE ESTERASE ,URINE NEGATIVE (NEGATIVE); NITRITE, URINE NEGATIVE (NEGATIVE); UGLUCOSE NEGATIVE (NEGATIVE)
[2019-02-28 16:01] VITALS: BP 120/65
[2019-02-28 16:07] LABS: MUCUS,URINE FEW /LPF (0-FEW); RBC,URINE 0-3 /HPF (0-3)
[2019-02-28 19:47] VITALS: BP 115/55
[2019-02-28] MEDS: MIRTAZAPINE 15 MG TABLET PO SCH (20:32)
[2019-02-28] MEDS: MUPIROCIN 2% OINT 22 GM TUBE NS SCH (20:35)
[2019-03-01] MEDS: ALBUTEROL SULFATE 1.25 MG/3 ML NEBU IH SCH ×6 (03:59→23:54)
[2019-03-01] MEDS: IPRATROPIUM BROMIDE 0.5 MG/2.5 ML NEBU NEB SCH ×6 (03:59→23:54)
[2019-03-01 05:18] VITALS: BP 165/90
[2019-03-01] MEDS: ACETYLCYSTEINE 10% 4ML VIAL NEB SCH ×3 (07:35→23:54)
[2019-03-01 07:45] LABS: BASOPHILS # (AUTO) 0.1 K/uL (0.0-8.0); BASOPHILS % (AUTO) 0.8 % (0.0-2.0); EOSINOPHILS # (AUTO) 0.1 K/uL (0.0-0.7); EOSINOPHILS % (AUTO) 0.7 % (0.0-7.0); HEMATOCRIT 26.9 % (36.7-47.1); HEMOGLOBIN 8.7 g/dL (12.5-16.3); LYMPHOCYTES # (AUTO) 0.6 K/uL (20.0-40.0); LYMPHOCYTES % (AUTO) 6.1 % (20.5-51.5); MEAN CORPUSCULAR HEMOGLOBIN 28.4 uug (23.8-33.4); MEAN CORPUSCULAR HGB CONC 33 g/dL (32.5-36.3); MEAN CORPUSCULAR VOLUME 87.3 fL (73.0-96.2); MONOCYTES # (AUTO) 0.6 K/uL (2.0-10.0); MONOCYTES % (AUTO) 6.8 % (0.0-11.0); NEUTROPHILS # (AUTO) 8.1 K/uL (1.8-8.9); NEUTROPHILS % (AUTO) 85.6 % (38.5-71.5); PLATELET COUNT (AUTO) 325 K/uL (152-348); RED BLOOD CELL COUNT(AUTO) 3.08 MIL/uL (4.06-5.63); WHITE BLOOD COUNT (AUTO) 9.5 K/uL (3.6-10.2)
[2019-03-01 07:49] LABS: CARBON DIOXIDE 29 mmol/L (21-32); CHLORIDE 105 mmol/L (98-107); CREATININE 1.4 mg/dL (0.6-1.3); GLUCOSE 88 mg/dL (74-106); POTASSIUM 3.7 mmol/L (3.5-5.1); UREA NITROGEN, BLOOD 36 mg/dL (7-18)
[2019-03-01 07:55] VITALS: BP 133/67
[2019-03-01 08:30] VITALS: BP 133/67
[2019-03-01] MEDS: FLUTICASONE/VILANTEROL 1 EACH BLST.W.DEV INH SCH (08:52)
[2019-03-01] MEDS: PROTEIN SUPPLEMENT (PROSTAT) 30 ML LIQUID PO SCH ×3 (08:52→16:37)
[2019-03-01] MEDS: BUMETANIDE 1 MG TABLET PO SCH (08:53)
[2019-03-01] MEDS: CULTURELLE CAPSULE PO SCH ×2 (08:53→20:10)
[2019-03-01] MEDS: FLUOXETINE HCL 20 MG CAPSULE PO SCH (08:53)
[2019-03-01] MEDS: DOXYCYCLINE HYCLATE 100 MG TABLET PO SCH ×2 (08:53→20:10)
[2019-03-01] MEDS: DOCUSATE SODIUM 100 MG CAPSULE PO SCH ×2 (08:53→20:11)
[2019-03-01] MEDS: LIDOCAINE 5% PATCH TD SCH (08:53)
[2019-03-01] MEDS: DILTIAZEM HCL CD 240 MG CAP.SR.24H PO SCH (08:54)
[2019-03-01] MEDS: ACETAMINOPHEN 325 MG TABLET PO PRN ×2 (08:59→20:23)
[2019-03-01] MEDS: [UNRECOGNIZED DRUG - OTHER] PO SCH ×2 (09:00→16:36)
[2019-03-01] MEDS: MUPIROCIN 2% OINT 22 GM TUBE NS SCH ×2 (09:02→20:10)
[2019-03-01] MEDS: TRAMADOL HCL 50 MG TABLET PO PRN ×3 (13:55→22:20)
[2019-03-01 16:30] VITALS: BP 98/53
[2019-03-01] MEDS: MIRTAZAPINE 15 MG TABLET PO SCH (20:10)
[2019-03-01] MEDS: TAMSULOSIN HCL 0.4 MG CAP.SR.24H PO SCH (20:11)
[2019-03-01 20:21] VITALS: BP 116/56
[2019-03-02] MEDS: IPRATROPIUM BROMIDE 0.5 MG/2.5 ML NEBU NEB SCH ×6 (04:36→22:30)
[2019-03-02] MEDS: ALBUTEROL SULFATE 1.25 MG/3 ML NEBU IH SCH ×6 (04:36→22:30)
[2019-03-02 05:24] VITALS: BP 122/70
[2019-03-02] MEDS: ACETYLCYSTEINE 10% 4ML VIAL NEB SCH ×3 (06:59→22:30)
[2019-03-02 07:45] VITALS: BP 128/62
[2019-03-02] MEDS: PROTEIN SUPPLEMENT (PROSTAT) 30 ML LIQUID PO SCH ×5 (08:00→16:09)
[2019-03-02] MEDS: FLUTICASONE/VILANTEROL 1 EACH BLST.W.DEV INH SCH (08:41)
[2019-03-02] MEDS: MUPIROCIN 2% OINT 22 GM TUBE NS SCH ×2 (08:41→20:10)
[2019-03-02] MEDS: LIDOCAINE 5% PATCH TD SCH (09:00)
[2019-03-02] MEDS: DOCUSATE SODIUM 100 MG CAPSULE PO SCH ×3 (09:00→20:10)
[2019-03-02] MEDS: FLUOXETINE HCL 20 MG CAPSULE PO SCH (09:35)
[2019-03-02] MEDS: DOXYCYCLINE HYCLATE 100 MG TABLET PO SCH (09:35)
[2019-03-02] MEDS: CULTURELLE CAPSULE PO SCH ×2 (09:35→20:10)
[2019-03-02] MEDS: DILTIAZEM HCL CD 240 MG CAP.SR.24H PO SCH (09:36)
[2019-03-02] MEDS: BUMETANIDE 1 MG TABLET PO SCH (09:36)
[2019-03-02] MEDS: [UNRECOGNIZED DRUG - OTHER] PO SCH ×2 (09:37→16:09)
[2019-03-02 16:20] VITALS: BP 103/52
[2019-03-02 19:31] VITALS: BP 109/51
[2019-03-02 19:42] VITALS: BP 109/51
[2019-03-02] MEDS: TAMSULOSIN HCL 0.4 MG CAP.SR.24H PO SCH (20:10)
[2019-03-02] MEDS: MIRTAZAPINE 15 MG TABLET PO SCH (20:10)
[2019-03-03] MEDS: ALBUTEROL SULFATE 1.25 MG/3 ML NEBU IH SCH ×6 (02:45→22:30)
[2019-03-03] MEDS: IPRATROPIUM BROMIDE 0.5 MG/2.5 ML NEBU NEB SCH ×6 (02:45→22:30)
[2019-03-03 05:23] VITALS: BP 112/56
[2019-03-03] MEDS: ACETYLCYSTEINE 10% 4ML VIAL NEB SCH ×3 (07:10→22:30)
[2019-03-03 08:00] VITALS: BP 116/54
[2019-03-03] MEDS: PROTEIN SUPPLEMENT (PROSTAT) 30 ML LIQUID PO SCH ×3 (08:59→16:22)
[2019-03-03] MEDS: MUPIROCIN 2% OINT 22 GM TUBE NS SCH ×2 (08:59→20:56)
[2019-03-03] MEDS: CULTURELLE CAPSULE PO SCH ×2 (09:00→20:56)
[2019-03-03] MEDS: FLUOXETINE HCL 20 MG CAPSULE PO SCH (09:00)
[2019-03-03] MEDS: DOCUSATE SODIUM 100 MG CAPSULE PO SCH ×2 (09:00→20:56)
[2019-03-03] MEDS: DILTIAZEM HCL CD 240 MG CAP.SR.24H PO SCH (09:00)
[2019-03-03] MEDS: FLUTICASONE/VILANTEROL 1 EACH BLST.W.DEV INH SCH (09:00)
[2019-03-03] MEDS: BUMETANIDE 1 MG TABLET PO SCH (09:00)
[2019-03-03] MEDS: LIDOCAINE 5% PATCH TD SCH (09:00)
[2019-03-03] MEDS: [UNRECOGNIZED DRUG - OTHER] PO SCH ×2 (09:01→16:41)
[2019-03-03 16:04] VITALS: BP 108/45
[2019-03-03 19:40] VITALS: BP 111/50
[2019-03-03] MEDS: TAMSULOSIN HCL 0.4 MG CAP.SR.24H PO SCH (20:56)
[2019-03-03] MEDS: MIRTAZAPINE 15 MG TABLET PO SCH (20:56)
[2019-03-04] MEDS: ALBUTEROL SULFATE 1.25 MG/3 ML NEBU IH SCH ×6 (03:55→23:42)
[2019-03-04] MEDS: IPRATROPIUM BROMIDE 0.5 MG/2.5 ML NEBU NEB SCH ×6 (03:55→23:42)
[2019-03-04] MEDS: ACETAMINOPHEN 325 MG TABLET PO PRN (04:20)
[2019-03-04 05:44] VITALS: BP 110/50
[2019-03-04] MEDS: ACETYLCYSTEINE 10% 4ML VIAL NEB SCH ×3 (07:00→23:42)
[2019-03-04 07:42] VITALS: BP 113/59
[2019-03-04] MEDS: BUMETANIDE 1 MG TABLET PO SCH (08:57)
[2019-03-04] MEDS: DOCUSATE SODIUM 100 MG CAPSULE PO SCH ×2 (08:57→20:28)
[2019-03-04] MEDS: FLUTICASONE/VILANTEROL 1 EACH BLST.W.DEV INH SCH (08:58)
[2019-03-04] MEDS: MUPIROCIN 2% OINT 22 GM TUBE NS SCH ×2 (08:59→20:30)
[2019-03-04] MEDS: DILTIAZEM HCL CD 240 MG CAP.SR.24H PO SCH (08:59)
[2019-03-04] MEDS: CULTURELLE CAPSULE PO SCH ×2 (09:00→20:30)
[2019-03-04] MEDS: LIDOCAINE 5% PATCH TD SCH (09:00)
[2019-03-04] MEDS: FLUOXETINE HCL 20 MG CAPSULE PO SCH (09:01)
[2019-03-04] MEDS: [UNRECOGNIZED DRUG - OTHER] PO SCH ×2 (09:06→17:16)
[2019-03-04] MEDS: PROTEIN SUPPLEMENT (PROSTAT) 30 ML LIQUID PO SCH ×3 (09:40→17:17)
[2019-03-04] MEDS ORDERED: BUMETANIDE 1 MG TABLET PO ONE (15:00)
[2019-03-04 16:07] VITALS: BP 122/59
[2019-03-04 19:30] VITALS: BP 134/58
[2019-03-04] MEDS: TAMSULOSIN HCL 0.4 MG CAP.SR.24H PO SCH (20:28)
[2019-03-04] MEDS: ONDANSETRON HCL 4 MG TABLET PO PRN (20:29)
[2019-03-04] MEDS: MIRTAZAPINE 15 MG TABLET PO SCH (20:29)
[2019-03-04] MEDS ORDERED: MAG HYDROX/AL HYDROX/SIMETH 30 ML LIQUID UDC PO PRN (21:45)
[2019-03-05] MEDS: ALBUTEROL SULFATE 1.25 MG/3 ML NEBU IH SCH ×6 (03:30→23:30)
[2019-03-05] MEDS: IPRATROPIUM BROMIDE 0.5 MG/2.5 ML NEBU NEB SCH ×6 (03:30→23:30)
[2019-03-05 04:40] VITALS: BP 118/52
[2019-03-05] MEDS: ACETYLCYSTEINE 10% 4ML VIAL NEB SCH ×3 (07:58→23:30)
[2019-03-05 08:00] VITALS: BP 116/60
[2019-03-05 08:00] LABS: BASOPHILS # (AUTO) 0.1 K/uL (0.0-8.0); BASOPHILS % (AUTO) 0.7 % (0.0-2.0); EOSINOPHILS # (AUTO) 0.1 K/uL (0.0-0.7); EOSINOPHILS % (AUTO) 1.2 % (0.0-7.0); HEMATOCRIT 23.3 % (36.7-47.1); HEMOGLOBIN 7.6 g/dL (12.5-16.3); LYMPHOCYTES # (AUTO) 0.5 K/uL (20.0-40.0); LYMPHOCYTES % (AUTO) 6.1 % (20.5-51.5); MEAN CORPUSCULAR HEMOGLOBIN 28.7 uug (23.8-33.4); MEAN CORPUSCULAR HGB CONC 33 g/dL (32.5-36.3); MEAN CORPUSCULAR VOLUME 87.9 fL (73.0-96.2); MONOCYTES # (AUTO) 0.7 K/uL (2.0-10.0); MONOCYTES % (AUTO) 9.5 % (0.0-11.0); NEUTROPHILS # (AUTO) 6.4 K/uL (1.8-8.9); NEUTROPHILS % (AUTO) 82.5 % (38.5-71.5); PLATELET COUNT (AUTO) 203 K/uL (152-348); RED BLOOD CELL COUNT(AUTO) 2.65 MIL/uL (4.06-5.63); WHITE BLOOD COUNT (AUTO) 7.8 K/uL (3.6-10.2)
[2019-03-05] MEDS: PROTEIN SUPPLEMENT (PROSTAT) 30 ML LIQUID PO SCH ×4 (08:00→17:00)
[2019-03-05 08:14] LABS: ALANINE AMINOTRANSFERASE 22 U/L (16-63); ALKALINE PHOSPHATASE 110 U/L (50-136); ASPARTATE AMINOTRANSFERASE 23 U/L (15-37); BILIRUBIN,TOTAL 0.3 mg/dL (0.2-1.0); CARBON DIOXIDE 30 mmol/L (21-32); CHLORIDE 104 mmol/L (98-107); CREATININE 1.1 mg/dL (0.6-1.3); GLUCOSE 90 mg/dL (74-106); MAGNESIUM 2.2 mg/dL (1.8-2.4); PHOSPHOROUS 3.4 mg/dL (2.5-4.9); POTASSIUM 3.3 mmol/L (3.5-5.1); TOTAL PROTEIN, SERUM 5.2 g/dL (6.4-8.2); UREA NITROGEN, BLOOD 27 mg/dL (7-18)
[2019-03-05] MEDS: FLUTICASONE/VILANTEROL 1 EACH BLST.W.DEV INH SCH (08:52)
[2019-03-05] MEDS: DOCUSATE SODIUM 100 MG CAPSULE PO SCH ×2 (08:53→20:42)
[2019-03-05] MEDS: BUMETANIDE 1 MG TABLET PO SCH (08:53)
[2019-03-05] MEDS: MUPIROCIN 2% OINT 22 GM TUBE NS SCH ×2 (08:53→20:44)
[2019-03-05] MEDS: FLUOXETINE HCL 20 MG CAPSULE PO SCH (08:54)
[2019-03-05] MEDS: CULTURELLE CAPSULE PO SCH ×2 (08:54→20:43)
[2019-03-05] MEDS: LIDOCAINE 5% PATCH TD SCH (09:00)
[2019-03-05] MEDS: [UNRECOGNIZED DRUG - OTHER] PO SCH ×2 (09:00→17:59)
[2019-03-05] MEDS: DILTIAZEM HCL CD 240 MG CAP.SR.24H PO SCH (09:01)
[2019-03-05] MEDS ORDERED: POTASSIUM CHLORIDE 20 MEQ TAB.PRT.SR PO ONE (11:45)
[2019-03-05] MEDS ORDERED: EPOETIN ALFA 20,000 UNIT/ML ML SQ ONE (12:45)
[2019-03-05 20:14] VITALS: BP 118/54
[2019-03-05] MEDS: MIRTAZAPINE 15 MG TABLET PO SCH (20:42)
[2019-03-05] MEDS: TAMSULOSIN HCL 0.4 MG CAP.SR.24H PO SCH (20:42)
== END 2019-03-06 01:32 | DRG 280 ==
PROVIDERS: ADMIT Physical Medicine & Rehabilitation Pain Medicine; ATTEND Physical Medicine & Rehabilitation Pain Medicine
DX: I13.0 Hypertensive heart and chronic kidney disease with heart failure and stage 1 through stage 4 chronic kidney disease, or unspecified chronic kidney disease (principal); I50.33 Acute on chronic diastolic (congestive) heart failure; I21.A1 Myocardial infarction type 2; E43 Unspecified severe protein-calorie malnutrition; J96.21 Acute and chronic respiratory failure with hypoxia; J96.22 Acute and chronic respiratory failure with hypercapnia; J69.0 Pneumonitis due to inhalation of food and vomit; N17.0 Acute kidney failure with tubular necrosis; D68.59 Other primary thrombophilia; I31.3 Pericardial effusion (noninflammatory); F33.2 Major depressive disorder, recurrent severe without psychotic features; J44.1 Chronic obstructive pulmonary disease with (acute) exacerbation; R45.851 Suicidal ideations; J84.9 Interstitial pulmonary disease, unspecified; E78.5 Hyperlipidemia, unspecified; F03.90 Unspecified dementia, unspecified severity, without behavioral disturbance, psychotic disturbance, mood disturbance, and anxiety; I25.10 Atherosclerotic heart disease of native coronary artery without angina pectoris; I27.21 Secondary pulmonary arterial hypertension; I48.2 Chronic atrial fibrillation; I67.2 Cerebral atherosclerosis; I70.0 Atherosclerosis of aorta; N18.2 Chronic kidney disease, stage 2 (mild); Z86.11 Personal history of tuberculosis; I08.0 Rheumatic disorders of both mitral and aortic valves; D50.0 Iron deficiency anemia secondary to blood loss (chronic); E87.6 Hypokalemia; Z87.891 Personal history of nicotine dependence; K56.41 Fecal impaction; K57.30 Diverticulosis of large intestine without perforation or abscess without bleeding; N28.1 Cyst of kidney, acquired; Z22.322 Carrier or suspected carrier of Methicillin resistant Staphylococcus aureus; Z79.01 Long term (current) use of anticoagulants; Z79.899 Other long term (current) drug therapy; Z83.3 Family history of diabetes mellitus; R30.0 Dysuria; R42 Dizziness and giddiness; Z88.1 Allergy status to other antibiotic agents; R13.10 Dysphagia, unspecified
CPT/HCPCS: 36415; 36600; 70030-TC; 71045; 71046; 74018; 74220; 82378; 82652; 83550; 83735; 84100; 84153; 84443; 85025; 87086; 92523; 92526; 92610; 94640; 94664; 97110; 97112; 97116; 97165; 97530; 97535; A4663; J0885; J1940; J2543; J2916; J3490; J3590; J7050; J7512; Q0162; Q9967